=== PATIENT | female | born 1990 | race American Indian/Alaskan Native ===

== ENCOUNTER 2017-12-17 22:39 | Observation (INO) | payer OTHER ==
[2017-12-17 23:23] VITALS: BMI 22.3
[2017-12-17] MEDS ORDERED: Sodium Chloride 0.9% 1,000 ML IV STA (23:35)
[2017-12-18 00:32] LABS: ALB/GLOB RATIO 0.9 (1.1-1.8); ALBUMIN 4.3 g/dL (3.0-4.8); ALT/SGPT 22 U/L (7-56); AST/SGOT 54 U/L (14-36); BLOOD UREA NITROGEN 18 mg/dL (7-21); CALCIUM 9.3 mg/dL (8.4-10.5); GFR AFRICAN-AMERICAN > 60; GFR NON-AFRICAN AMERICAN 59; LIPASE 107 U/L (23-300)
[2017-12-18 00:41] LABS: BASO # 0.02 K/mm3 (0.0-2.0); BASO % 0.2 % (0.0-3.0); EOS # 0.1 (0.0-0.7); EOS % 1.5 % (1.5-5.0); GRAN # 5.97 (1.4-6.5); GRAN % 64.8 % (50.0-68.0); LYMPH # 2.4 (1.2-3.4); LYMPH % 25.8 % (22.0-35.0); MEAN CELL VOLUME 85.1 fl (80.0-105.0); MEAN CORPUSCULAR HEMOGLOBIN 29.3 pg (25.0-35.0); MEAN CORPUSCULAR HGB CONC 34.4 g/dl (31.0-37.0); MEAN PLATELET VOLUME 9.7 fl (7.0-11.0); MONO # 0.7 (0.1-0.6); MONO % 7.7 % (1.0-6.0); RBC 3.76 10^6/uL (3.5-6.1); RED CELL DISTRIBUTION WIDTH 13.9 % (11.5-14.5); WHITE BLOOD COUNT 9.2 10^3/ul (4.5-11.0)
[2017-12-18 01:02] LABS: URINE BILIRUBIN NEGATIVE (NEGATIVE); URINE BLOOD LARGE (NEGATIVE); URINE GLUCOSE (UA) NEGATIVE (NEGATIVE); URINE LEUKOCYTE ESTERASE NEGATIVE Leu/uL (NEGATIVE); URINE PROTEIN 100 mg/dL (<30 mg/dL); URINE UROBILINOGEN 0.2 E.U./dL (<1 E.U./dL)
[2017-12-18 01:03] LABS: URINE APPEARANCE SL CLOUDY (CLEAR); URINE COLOR YELLOW (YELLOW)
[2017-12-18 01:16] LABS: URINE WBC 0 - 2 /hpf (0-6)
--- NOTE | 2017-12-18 01:20 | ED PDOC ---
Arrival/HPI <Obinna Avina - Last Filed: 12/18/17 02:33> - General Historian: Patient - History of Present Illness Time/Duration: 1-3 hours Symptom Onset: Sudden Symptom Course: Unchanged Quality: Stabbing Severity Level: 10 <Paty Palomares - Last Filed: 12/19/17 16:19> - General Chief Complaint: Back Pain Time Seen by Provider: 12/17/17 23:34 - History of Present Illness Narrative History of Present Illness (Text): 12/18/17 02:17 27-year-old female presents today with a sudden onset of right-sided flank pain with associated nausea and vomiting. Patient complaining of sharp stabbing pain to the right flank radiating to the upper abdomen. Patient denies fevers or chills. No chest pain or shortness of breath. She denies dizziness or weakness. Patient states she took Tylenol for pain at home without improvement. She denies history of kidney stones in the past. She denies sick contacts. She denies diarrhea. She denies hematuria. She denies dysuria or urinary frequency. Patient states pain started 2 hours prior to arrival. (Paty Palomares) Past Medical History - Provider Review Nursing Documentation Reviewed: Yes - Travel History Have you recently traveled outside [place] w/in the past 3 mons?: No - Infectious Disease Hx of Infectious Diseases: None - Tetanus Immunization Tetanus Immunization: Up to Date - Reproductive Menopause: No - Past Medical History Past Medical History: No Previous - Psychiatric Hx Psychophysiologic Disorder: No Hx Anxiety: No Hx Bipolar Disorder: No Hx Depression: No Hx Emotional Abuse: No Hx Hallucinations: No Hx Panic Disorder: No Hx Post Traumatic Stress Disorder: No Hx Psychosis: No Hx Physical Abuse: No Hx Schizophrenia: No Hx Sexual Abuse: No Hx Substance Use: No - Surgical History Hx Section: Yes - Anesthesia Hx Anesthesia: Yes Hx Anesthesia Reactions: No Hx Malignant Hyperthermia: No - Suicidal Assessment Feels Threatened In Home Enviroment: No <Paty Palomares - Last Filed: 12/19/17 16:19> Family/Social History - Physician Review Nursing Documentation Reviewed: Yes Family/Social History: Unknown Family HX Smoking Status: Never Smoked Hx Alcohol Use: No Hx Substance Use: No Hx Substance Use Treatment: No <Paty Palomares - Last Filed: 12/19/17 16:19> Allergies/Home Meds <Obinna Avina - Last Filed: 12/18/17 02:33> <Paty Palomares Last Filed: 12/19/17 16:19> Allergies/Adverse Reactions: Allergies No Known Allergies Allergy (Verified 12/17/17 23:23) Review of Systems - Review of Systems Constitutional: absent: Fatigue, Fevers Respiratory: absent: SOB, Cough Cardiovascular: absent: Chest Pain, Palpitations Gastrointestinal: Abdominal Pain, Nausea, Vomiting. absent: Constipation, Diarrhea Genitourinary Female: absent: Dysuria, Frequency, Hematuria, Vaginal Bleeding, Vaginal Discharge Musculoskeletal: Back Pain. absent: Arthralgias, Neck Pain Skin: absent: Rash, Pruritis Neurological: absent: Headache, Dizziness Psychiatric: absent: Anxiety, Depression <Paty Palomares Last Filed: 12/19/17 16:19> Physical Exam Vital Signs Reviewed: Yes Temperature: Afebrile Blood Pressure: Normal Pulse: Regular Respiratory Rate: Normal Appearance: Positive for: Well-Appearing, Non-Toxic, Comfortable Pain Distress: None Mental Status: Positive for: Alert and Oriented X 3 - Systems Exam Head: Present: Atraumatic Mouth: Present: Moist Mucous Membranes Neck: Present: Normal Range of Motion Respiratory/Chest: Present: Clear to Auscultation, Good Air Exchange. No: Respiratory Distress, Accessory Muscle Use Cardiovascular: Present: Regular Rate and Rhythm, Normal S1, S2. No: Murmurs Abdomen: Present: Tenderness (minimal ruq tenderness). No: Distention, Peritoneal Signs, Rebound, Guarding Back: Present: Normal Inspection, Other (+ right flank tenderness). No: CVA Tenderness, Midline Tenderness Neurological: Present: GCS=15 Skin: Present: Warm, Dry, Normal Color. No: Rashes Psychiatric: Present: Alert, Oriented x 3 <Paty Palomares Last Filed: 12/19/17 16:19> Vital Signs Temp Pulse Resp BP Pulse Ox 12/18/17 02:11 82 16 106/52 L 97 12/18/17 01:27 79 18 117/54 L 99 12/18/17 00:18 79 14 112/62 99 12/17/17 23:19 97.8 F 81 18 109/63 98 Medical Decision Making - RAD Interpretation Machine Hostler: Radiologist <Obinna Avina Filed: 12/18/17 02:33> Reassessment Condition: Re-examined, Improving,but remains with symptoms <Paty Palomares - Last Filed: 12/19/17 16:19> ED Course and Treatment: 12/18/17 02:27 CT Abdomen and Pelvis shows: Lower thorax: Minimal bibasilar atelectasis or scar. ABDOMEN: Liver: Normal. No mass. Gallbladder and bile ducts: Normal. No calcified stones. No ductal dilation. Pancreas: Normal. No ductal dilation. Spleen: Normal. No splenomegaly. Adrenals: Normal. No mass. Kidneys and ureters: Right renal enlargement with perinephric induration and mild right hydronephrosis which extends to a proximal right ureteral calculus just below the UPJ measuring 4 x 3 x 7 mm. Stomach and bowel: Normal. No obstruction. No mucosal thickening. Appendix: A normal appendix is seen. PELVIS: Bladder: Unremarkable as visualized. Reproductive: There is packing in the vagina. ABDOMEN and PELVIS: Intraperitoneal space: Normal. No free air. No significant fluid collection. Bones/joints: Slight anterior wedge configuration of L1 which appears to be chronic. Soft tissues: Unremarkable. Vasculature: Normal. No abdominal aortic aneurysm. Lymph nodes: Normal. No enlarged lymph nodes. IMPRESSION: 1. Proximal right ureteral calculus just below the UPJ measuring 3 x 4 x 7 mm with secondary obstructive uropathy of the right upper tract. 2. Otherwise negative CT abdomen/pelvis. 12/18/17 02:29 Case discussed with healthcare or medical auto inspection specialist, who is aware and agrees with plan. 12/18/17 02:[address] Berumen, who is aware and agrees with plan. Accepts pt in to hospitalist service. Pt will go to [facility] observation for renal colic, nephrolithiasis, and intractable pain. (Obinna Avina) Patient is nontoxic well appearing with stable vital signs presenting with sudden onset of right sided flank pain radiating to the upper abdomen. CBC within normal limits CMP within normal limits Lipase within normal limits Urinalysis positive blood CAT scan pending Patient reassessment: After Toradol and Zofran patient states the nausea has subsided but the pain is still present. Patient rates the pain as a 6 out of 10. 2 mg of morphine added. 12/18/17 02:20 Case signed out to Dr. Avina pending CT result reevaluation and disposition (Paty Palomares) - Lab Interpretations Lab Results: 12/18/17 00:10 12/18/17 00:10 Lab Results 12/18/17 00:11: Urine Color Yellow, Urine Appearance Sl cloudy, Urine pH 6.0, Ur Specific [place] >= 1.030, Urine Protein 100 H, Urine Glucose (UA) Negative, Urine Ketones Trace H, Urine Blood Large H, Urine Nitrate Negative, Urine Bilirubin Negative, Urine Urobilinogen 0.2, Ur Leukocyte Esterase Negative, Urine RBC 5 - 10, Urine WBC 0 - 2, Ur Epithelial Cells 1 - 3 12/18/17 00:10: Magnesium 1.8 12/18/17 00:10: WBC 9.2, RBC 3.76, Hgb 11.0 L, Hct 32.0 L, MCV 85.1, MCH 29.3, MCHC 34.4, RDW 13.9, Plt Count 274, MPV 9.7, Gran % 64.8, Lymph % (Auto) 25.8, [place] % (Auto) 7.7 H, Eos % (Auto) 1.5, Baso % (Auto) 0.2, Gran # 5.97, Lymph # ( Auto) 2.4, [place] # (Auto) 0.7 H, Eos # (Auto) 0.1, Baso # (Auto) 0.02 12/18/17 00:10: Sodium 145, Potassium 3.5 L, Chloride 105, Carbon Dioxide 27, Anion Gap 16, BUN 18, Creatinine 1.1, Est GFR ( Amer) > 60, Est GFR (Non- Af Amer) 59, Random Glucose 105, Calcium 9.3, Total Bilirubin 0.4, AST 54 H, ALT 22, Alkaline Phosphatase 63, Total Protein 9.2 H, Albumin 4.3, Globulin 4.9 , Albumin/Globulin Ratio 0.9 L, Lipase 107 - RAD Interpretation Radiology Orders: 12/17/17 23:35 ABD & PELVIS W/O PO OR IV CONT [CT] Stat - Medication Orders Current Medication Orders: Enoxaparin Sodium (Lovenox) 40 mg SC DAILY LUCY PRN Reason: Protocol Last Admin: 12/19/17 09:04 Dose: 40 mg Subcutaneous Administrations Document 12/19/17 09:04 SIERRA (Rec: 12/19/17 09:04 SIERRA [id number]) Charges for Administration # of Subcutaneous Administrations 1 Sodium Chloride (Sodium Chloride 0.9%) 1,000 mls @ 150 mls/hr IV .Q6H40M LUCY Last Admin: 12/18/17 17:50 Dose: 150 mls/hr eMAR Start Stop Document 12/18/17 17:50 LMN (Rec: 12/18/17 17:50 LMN [id number]) Intravenous Solution Start Date 12/18/17 Start Time 11:30 Ondansetron HCl (Zofran Inj) 4 mg IVP Q4H PRN PRN Reason: Nausea/Vomiting Last Admin: 12/18/17 12:26 Dose: 4 mg IVP Administration Document 12/18/17 12:26 LMN (Rec: 12/18/17 12:26 LMN [id number]) Charges for Administration # of IVP Administrations 1 Oxycodone/Acetaminophen (Percocet 5/325 Mg Tab) 1 tab PO Q4H PRN PRN Reason: Pain, severe (8-10) Stop: 12/22/17 10:52 Pantoprazole Sodium (Protonix Inj) 40 mg IVP DAILY [facility] Last Admin: 12/19/17 09:03 Dose: 40 mg IVP Administration Document 12/19/17 09:03 SIERRA (Rec: 12/19/17 09:03 SIERRA [id number]) Charges for Administration # of IVP Administrations 1 Polyethylene Glycol (Miralax) 17 gm PO DAILY [facility] Tamsulosin HCl (Flomax) 0.4 mg PO DAILY [facility] Last Admin: 12/19/17 09:03 Dose: 0.4 mg Discontinued Medications Hydromorphone HCl (Dilaudid) 0.5 mg IVP STAT STA Stop: 12/18/17 03:57 Last Admin: 12/18/17 04:07 Dose: 0.5 mg MAR Pain Assessment Document 12/18/17 04:07 MAD (Rec: 12/18/17 04:07 MAD [id number]) Pain Reassessment Is this a pain reassessment? Yes Sleep Is patient sleeping during reassessment? No Presence of Pain Presence of Pain Yes Pain Scale Used Pain Scale Used Numeric Location Left, Right or Bilateral Right Pain Location Body Site Abdomen Back Description Description Radiating Intensity of Pain at present 8 Acceptable Level of Pain 3 Pain Behavior Facial Grimacing Alleviating Factors/Management Medication Techniques Alleviating Factors Medication IVP Administration Document 12/18/17 04:07 MAD (Rec: 12/18/17 04:07 MAD [id number]) Charges for Administration # of IVP Administrations 1 Re-Assess: DOUG Pain Assessment Document 12/18/17 05:07 MAD (Rec: 12/18/17 05:11 [facility] [id number]) Pain Reassessment Is this a pain reassessment? Yes Sleep Is patient sleeping during reassessment? Yes Sodium Chloride (Sodium Chloride 0.9%) 1,000 mls @ 999 mls/hr IV .Q1H1M STA Stop: 12/18/17 00:35 Last Admin: 12/17/17 23:58 Dose: 999 mls/hr eMAR Start Stop Document 12/17/17 23:58 TA (Rec: 12/17/17 23:58 TA RECOVERED-LAP) Intravenous Solution Start Date 12/17/17 Start Time 23:58 Potassium Chloride (Potassium Chloride 10 Meq/100 Ml) 10 meq in 100 mls @ 50 mls/hr IVPB Q2H LUCY Stop: 12/18/17 13:29 Last Admin: 12/18/17 12:18 Dose: 50 mls/hr eMAR Start Stop Document 12/18/17 12:18 LMN (Rec: 12/18/17 12:18 LMN [id number]) Intravenous Solution Start Date 12/18/17 Start Time 12:18 Magnesium 2 gm/50 ml NS (Magnesium Sulfate 2 Gm/50 Ml Ns) 2 gm in 50 mls @ 50 mls/hr IVPB ONCE ONE Stop: 12/19/17 10:07 Last Admin: 12/19/17 11:17 Dose: 50 mls/hr eMAR Start Stop Document 12/19/17 11:17 SIERRA (Rec: 12/19/17 11:17 [facility]ERRA [id number]) Intravenous Solution Start Date 12/19/17 Start Time 13:00 Potassium Chloride (Potassium Chloride 10 Meq/100 Ml) 10 meq in 100 mls @ 50 mls/hr IVPB Q2H LUCY Stop: 12/19/17 13:14 Last Admin: 12/19/17 11:16 Dose: 50 mls/hr eMAR Start Stop Document 12/19/17 11:16 SIERRA (Rec: 12/19/17 11:17 SIERRA [id number]) Intravenous Solution Start Date 12/19/17 Start Time 11:16 Ketorolac Tromethamine (Toradol) 30 mg IVP STAT STA Stop: 12/17/17 23:36 Last Admin: 12/17/17 23:58 Dose: 30 mg MAR Pain Assessment Document 12/17/17 23:58 TA (Rec: 12/17/17 23:59 TA RECOVERED-LAP) Pain Reassessment Is this a pain reassessment? Yes Sleep Is patient sleeping during reassessment? No Presence of Pain Presence of Pain Yes Pain Scale Used Pain Scale Used Numeric Location Left, Right or Bilateral Right Pain Location Body Site Abdomen Description Description Constant IVP Administration Document 12/17/17 23:58 TA (Rec: 12/17/17 23:59 TA RECOVERED-LAP) Charges for Administration # of IVP Administrations 1 Re-Assess: MAR Pain Assessment Document 12/18/17 00:58 RG (Rec: 12/18/17 01:48 RG [id number]) Pain Reassessment Is this a pain reassessment? Yes Sleep Is patient sleeping during reassessment? No Presence of Pain Presence of Pain Yes Pain Scale Used Pain Scale Used Numeric Location Left, Right or Bilateral Right Upper or Lower Lower Pain Location Body Site Back Description Description Sharp Intensity of Pain at present 8 Pain Behavior Moaning Guarding Morphine Sulfate (Morphine) 2 mg IVP STAT STA Stop: 12/18/17 01:45 Last Admin: 12/18/17 01:52 Dose: 2 mg MAR Pain Assessment Document 12/18/17 01:52 RG (Rec: 12/18/17 02:07 RG [id number]) Pain Reassessment Is this a pain reassessment? Yes Sleep Is patient sleeping during reassessment? No Presence of Pain Presence of Pain Yes Pain Scale Used Pain Scale Used Numeric Location Left, Right or Bilateral Right Upper or Lower Lower Pain Location Body Site Back Description Description Sharp Pain Behavior Moaning Guarding IVP Administration Document 12/18/17 01:52 RG (Rec: 12/18/17 02:07 RG [id number]) Charges for Administration # of IVP Administrations 1 Re-Assess: [facility] Pain Assessment Document 12/18/17 02:52 RG (Rec: 12/18/17 03:00 RG [id number]) Pain Reassessment Is this a pain reassessment? Yes Sleep Is patient sleeping during reassessment? No Presence of Pain Presence of Pain No Morphine Sulfate (Morphine) 2 mg IVP Q4H PRN PRN Reason: Pain, moderate (4-7) Last Admin: 12/19/17 09:04 Dose: 2 mg IVP Administration Document 12/19/17 09:04 SIERRA (Rec: 12/19/17 09:04 SIERRA [id number]) Charges for Administration # of IVP Administrations 1 Morphine Sulfate (Morphine) 2 mg IVP STAT STA Stop: 12/18/17 23:22 Last Admin: 12/18/17 23:36 Dose: 2 mg [facility] Pain Assessment Document 12/18/17 23:36 MB (Rec: 12/18/17 23:36 MB [id number]) Pain Reassessment Is this a pain reassessment? No Presence of Pain Presence of Pain Yes Pain Scale Used Pain Scale Used Numeric Location Left, Right or Bilateral Bilateral Upper or Lower Lower Pain Location Body Site Abdomen Description Description Intermittent Intensity of Pain at present 9 IVP Administration Document 12/18/17 23:36 MB (Rec: 12/18/17 23:36 MB [id number]) Charges for Administration # of IVP Administrations 1 Re-Assess: [facility] Pain Assessment Document 12/19/17 00:36 MB (Rec: 12/19/17 00:51 MB [id number]) Pain Reassessment Is this a pain reassessment? Yes Sleep Is patient sleeping during reassessment? Yes Ondansetron HCl (Zofran Inj) 4 mg IVP STAT STA Stop: 12/17/17 23:36 Last Admin: 12/17/17 23:59 Dose: 4 mg IVP Administration Document 12/17/17 23:59 TA (Rec: 12/17/17 23:59 TA RECOVERED-LAP) Charges for Administration # of IVP Administrations 1 Potassium Chloride (K-Dur 20 Meq Er Tab) 40 meq PO STAT STA Stop: 12/18/17 07:21 Last Admin: 12/18/17 08:15 Dose: 40 meq Comments: Pt vomited immediately after administration - PA / WELLNESS TRAINER / Resident Statement / has reviewed & agrees with the documentation as recorded. / has examined the patient and agrees with the treatment plan. <Obinna Avina - Last Filed: 12/18/17 02:33> Disposition/Present on Arrival <Obinna Avina - Last Filed: 12/18/17 02:33> - Present on Arrival Any Indicators Present on Arrival: No History of DVT/PE: No History of Uncontrolled Diabetes: No Urinary Catheter: No History of Decub. Ulcer: No History Surgical Site Infection Following: None - Disposition Have Diagnosis and Disposition been Completed?: Yes Disposition Time: 02:30 Patient Plan: Observation <Paty Palomares - Last Filed: 12/19/17 16:19> - Disposition Diagnosis: Nephrolithiasis Disposition: HOSPITALIZED Patient Problems: Current Active Problems Problem Status Onset Right nephrolithiasis Acute Condition: GOOD
[2017-12-18] MEDS: Sodium Chloride 0.9% 1,000 ML IV SCH ×2 (03:51→17:50)
--- NOTE | 2017-12-18 03:53 | CP.PCM.HP ---
<Osorio Newberry - Last Filed: 12/18/17 06:12> History of Present Illness - History of Present Illness History of Present Illness: Ms. Aponte is a 27 F with no significant Past Medical History who presented to the ED with intractable R sided flank pain that began last night. She was sitting watching a movie when a sharp stabbing pain began. She reported nauseau and vomitus x2 before her arrival and then two more times once in the unit. She states Ketorolac did not ease the pain, and morphine helped somewhat. The pain is located on the RLQ and radiates out to the R flank. Rates a 7/10 pain currently. She states that this is the last day of her menstrual period, and that her periods are regular. She denies a similar episode in the past. PMH: None Surgical Hx: x1, Orbital fracture surgery Family Medical Hx: Father - Lupus Social Hx: Denies tobacco. Occasional alcohol and marijuana use Allergies: NKDA Present on Admission - Present on Admission Any Indicators Present on Admission: No History of DVT/PE: No History of Uncontrolled Diabetes: No Urinary Catheter: No Decubitus Ulcer Present: No Review of Systems - Constitutional Constitutional: absent: Chills, Excessive Sweating, Fever - EENT Eyes: absent: Blurred Vision, Photophobia - Cardiovascular Cardiovascular: absent: Chest Pain, Diaphoresis, Dyspnea, Palpitations - Respiratory Respiratory: Pain with Coughing. absent: Cough, Dyspnea - Genitourinary Genitourinary: Change in Urinary Stream, Difficulty Urinating, Flank Pain, Urinary Hesitance, Voiding Freq/Small Amts. absent: Dysuria - Reproductive: Female Reproductive:Female: Currently Menstual, Normal Menses - Musculoskeletal Musculoskeletal: Back Pain Past Patient History - Infectious Disease Hx of Infectious Diseases: None - Tetanus Immunizations Tetanus Immunization: Up to Date - Past Medical History & Family History Past Medical History?: No - Past Social History Smoking Status: Never Smoked Alcohol: Occasional Drugs: Cannabis Home Situation {Lives}: With Family - PSYCHIATRIC Hx Psychophysiologic Disorder: No Hx Anxiety: No Hx Bipolar Disorder: No Hx Depression: No Hx Emotional Abuse: No Hx Hallucinations: No Hx Panic Symptoms: No Hx Post Traumatic Stress Disorder: No Hx Psychosis: No Hx Physical Abuse: No Hx Schizophrenia: No Hx Sexual Abuse: No Hx Substance Use: No - SURGICAL HISTORY Hx Section: Yes - ANESTHESIA Hx Anesthesia: Yes Hx Anesthesia Reactions: No Hx Malignant Hyperthermia: No Meds Allergies/Adverse Reactions: Allergies Allergy/AdvReac Type Severity Reaction Status Date / Time No Known Allergies Allergy Verified 12/17/17 23:23 Physical Exam - Constitutional Appears: In Acute Distress, Other (Discomfort) - Head Exam Head Exam: ATRAUMATIC, NORMOCEPHALIC - Respiratory Exam Respiratory Exam: Clear to Auscultation Bilateral. absent: Accessory Muscle Use , Chest Wall Tenderness, Decreased Breath Sounds, Wheezes, Respiratory Distress - Cardiovascular Exam Cardiovascular Exam: REGULAR RHYTHM, RRR, +S1, +S2. absent: Clicks - GI/Abdominal Exam GI & Abdominal Exam: Guarding, Normal Bowel Sounds, Tenderness - Back Exam Back exam: CVA tenderness (R). absent: CVA tenderness (L) Results - Vital Signs Recent Vital Signs: Last Vital Signs Temp 97.8 F 12/17/17 23:19 Pulse 82 12/18/17 02:11 Resp 16 12/18/17 02:11 BP 106/52 L 12/18/17 02:11 Pulse Ox 97 12/18/17 02:11 - Labs Result Diagrams: 12/18/17 00:10 12/18/17 00:10 Assessment & Plan - Assessment and Plan (Free Text) Assessment: Ms. Aponte is a 27 F with no significant PMHx who is admitted due to R nephrolithiasis. CT of the abd/pelvis confirmed a 4x3x7 mm stone just below the pelvic-ureteral junction. 1. R nephrolithiasis continue morphine 2mg q4 PRN Remain NPO in case of upcoming procedure Zofran 4 mg Q4 to control the nauseau Continue fluids NS 150 cc/hr Urology consult with Dr. Xiomara Rodas specimen to analyze stone UA shows no evidence of UTI (neg leuk esterase and nitrates) 2. Prophylaxis Protonix for GI Ppx SCD's for DVT Ppx Decision To Admit - Pt Status Changed To: Hospital Disposition Of: Inpatient Admission - Admit Certification Admit to Inpatient:: After my assessment, the patient will require hospitalization for at least two midnights. This is because of the severity of symptoms shown, intensity of services needed, and/or the medical risk in this patient being treated as an outpatient. - . Bed Request Type: Med/Surg <Mala Berumen - Last Filed: 12/18/17 06:24> Results - Vital Signs Recent Vital Signs: Last Vital Signs Temp 98.2 F 12/18/17 03:34 Pulse 78 12/18/17 03:34 Resp 18 12/18/17 03:34 BP 111/69 12/18/17 03:34 Pulse Ox 97 12/18/17 02:11 - Labs Result Diagrams: 12/18/17 00:10 12/18/17 00:10 Attending/Attestation - Attestation I have personally seen and examined this patient.: Yes I have fully participated in the care of the patient.: Yes I have reviewed all pertinent clinical information: Yes Notes (Text): 12/18/17 06:24 Patient was seen when she was in bed 569-02. Agree with history, physical examination, assessment and plan.
[2017-12-18] MEDS ORDERED: HYDROmorphone 0.5 mg/0.5 ml ISec IVP STA (03:56)
[2017-12-18] MEDS ORDERED: Potassium Chloride 20 mEq ER Tab PO STA (07:20)
[2017-12-18 07:38] VITALS: O2SAT 100
[2017-12-18] MEDS: Morphine 2 mg/2 mL syringe IVP PRN ×3 (08:14→21:21)
--- NOTE | 2017-12-18 10:30 | CT ---
PROCEDURE: CT Abdomen and Pelvis with Oral contrast. HISTORY: Right-sided flank pain COMPARISON: No prior study available comparison. TECHNIQUE: Contiguous axial images of the abdomen and pelvis performed without oral or intravenous contrast material. Additional 2D sagittal and coronal reformats generated. Radiation dose: Total exam DLP = 260.03 mGy-cm. This CT exam was performed using one or more of the following dose reduction techniques: Automated exposure control, adjustment of the mA and/or kV according to patient size, and/or use of iterative reconstruction technique. . FINDINGS: LOWER THORAX: Heart size normal. No significant pericardial effusion. There is a small hiatal hernia. Minor scarring changes left lingular region. LIVER: Unremarkable. No gross lesion or ductal dilatation. GALLBLADDER AND BILE DUCTS: Unremarkable. PANCREAS: Unremarkable. No mass. No ductal dilatation. SPLEEN: Unremarkable. No splenomegaly. ADRENALS: Unremarkable. KIDNEYS AND URETERS: There is a right-sided UPJ calculus that measures approximately 4.3 at mm in greatest dimension with mild right-sided hydronephrosis. Mild infiltration changes seen in the periureteric and. The pelvic fat. No additional renal or ureteral calculi are identified. BLADDER: Urinary bladder incompletely distended which presumably opacified areas. Possibility of a cystitis should be excluded with urinalysis correlation. REPRODUCTIVE: In situ tampon. APPENDIX: Appendix is unremarkable BOWEL: Unremarkable. No obstruction. No gross mural thickening. PERITONEUM: Unremarkable. No fluid collection. No free air. There is a small fat containing umbilical hernia. . LYMPH NODES: Unremarkable. No enlarged lymph nodes. VASCULATURE: Unremarkable. No aortic aneurysm. BONES: Minor chronic anterior wedging of the L1 segment with a small chronic appearing Schmorl's nodes anterior superior endplate of this segment OTHER FINDINGS: None. IMPRESSION: There is an approximately 4.3 mm calculus right UPJ with mild right-sided hydronephrosis. In situ tampon. Preliminary report provided by overnight radiology service.
[2017-12-18] MEDS: Enoxaparin 40 mg Syringe SC SCH (10:38)
--- NOTE | 2017-12-18 12:21 | PN ---
DATE: 12/18/2017 CHIEF COMPLAINT: Right flank pain. HISTORY OF PRESENT ILLNESS: This is a 27-year-old female who was admitted with renal colic. CT scan was reviewed. The patient appears to have a 4-mm upper right ureteral calculus. The patient has no fever or chills. She has a normal white count. She has no history of diabetes. Plan for now will be to discuss with the medical team. If the patient's pain can be controlled and she is tolerating a diet, the patient should be discharged home on oral analgesics and tamsulosin. The patient will need outpatient urologic followup. There is no indication for acute emergent surgical intervention at this time. Recommend a KUB with oblique prior to discharge to see if the stone is visible. Perhaps an outpatient shockwave lithotripsy would help. Stent placement will likely cause more discomfort and the patient should be given an opportunity to pass the stone spontaneously. Mateus Solano MD
[2017-12-18] MEDS ORDERED: Morphine 2 mg/ml ISec IVP STA (23:21)
[2017-12-19] MEDS: Morphine 2 mg/2 mL syringe IVP PRN ×2 (02:39→09:04)
[2017-12-19 07:11] LABS: HEMOGLOBIN 9.2 g/dL (12.0-16.0); MEAN CELL VOLUME 85.6 fl (80.0-105.0); MEAN CORPUSCULAR HEMOGLOBIN 28.2 pg (25.0-35.0); MEAN PLATELET VOLUME 9.4 fl (7.0-11.0); RBC 3.26 10^6/uL (3.5-6.1); RED CELL DISTRIBUTION WIDTH 14.2 % (11.5-14.5)
[2017-12-19 07:42] LABS: ALB/GLOB RATIO 0.8 (1.1-1.8); ALT/SGPT 13 U/L (7-56); AST/SGOT 24 U/L (14-36); BLOOD UREA NITROGEN 8 mg/dL (7-21); GFR AFRICAN-AMERICAN > 60; GFR NON-AFRICAN AMERICAN > 60
[2017-12-19] MEDS: Enoxaparin 40 mg Syringe SC SCH (09:04)
[2017-12-19] MEDS ORDERED: Magnesium 2 gm/50 ml NS 2 GM/50 ML BAG IVPB ONE (09:08)
[2017-12-19] MEDS ORDERED: Oxycodone/Acetaminophen 5/325 mg Tab PO PRN (10:51)
--- NOTE | 2017-12-19 12:24 | RAD ---
HISTORY: kidney stones COMPARISON: None FINDINGS: This examination is nondiagnostic for evaluation of renal calculi due to fecal material and bowel gas obscuring renal silhouette. BOWEL: There is moderate amount of stool in the colon. The bowel gas pattern is nonspecific. BONES: Normal. OTHER FINDINGS: None. IMPRESSION: Nondiagnostic examination as the renal silhouette is obscured by fecal material and bowel gas.
[2017-12-19] MEDS ORDERED: POLYETHYLENE GLYCOL 3350 17 GM/Dose PACKET PO SCH (14:15)
--- NOTE | 2017-12-19 14:40 | CP.PCM.PN ---
Subjective - Date & Time of Evaluation Date of Evaluation: 12/19/17 Time of Evaluation: 14:28 - Subjective Subjective: Medicine Progress Note Patient was seen at bedside today, reports no pain overnight. Patient states she was able to sleep until around 6AM when she woke up due to pain. Location of pain is RUQ radiating to right flank. Patient admits to nausea but denies episodes of vomiting. Pain medication PRN was administered. Patient denies blood in urine. PMH: None Surgical Hx: x1, Orbital fracture surgery Family Medical Hx: Father Lupus Social Hx: Denies tobacco. Occasional alcohol and marijuana use Allergies: NKDA PCP: Wili Crespo Objective - Vital Signs/Intake and Output Vital Signs (last 24 hours): Temp Pulse Resp BP Pulse Ox 99.4 F 95 H 97 H 110/71 100 12/19/17 06:00 12/19/17 06:00 12/19/17 06:00 12/19/17 06:00 12/18/17 22:16 - Medications Medications: Current Medications Enoxaparin Sodium (Lovenox) 40 mg SC DAILY [facility] PRN Reason: Protocol Last Admin: 12/19/17 09:04 Dose: 40 mg Sodium Chloride (Sodium Chloride 0.9%) 1,000 mls @ 150 mls/hr IV .Q6H40M [facility] Last Admin: 12/18/17 17:50 Dose: 150 mls/hr Ondansetron HCl (Zofran Inj) 4 mg IVP Q4H PRN PRN Reason: Nausea/Vomiting Last Admin: 12/18/17 12:26 Dose: 4 mg Oxycodone/Acetaminophen (Percocet 5/325 Mg Tab) 1 tab PO Q4H PRN PRN Reason: Pain, severe (8-10) Stop: 12/22/17 10:52 Pantoprazole Sodium (Protonix Inj) 40 mg IVP DAILY [facility] Last Admin: 12/19/17 09:03 Dose: 40 mg Polyethylene Glycol (Miralax) 17 gm PO DAILY [facility] Tamsulosin HCl (Flomax) 0.4 mg PO DAILY [facility] Last Admin: 12/19/17 09:03 Dose: 0.4 mg - Labs Labs: 12/19/17 06:30 12/19/17 06:30 - Constitutional Appears: No Acute Distress - Head Exam Head Exam: ATRAUMATIC, NORMAL INSPECTION, NORMOCEPHALIC - Eye Exam Eye Exam: Conjunctival injection, Normal appearance Pupil Exam: NORMAL ACCOMODATION - ENT Exam ENT Exam: Mucous Membranes Moist - Neck Exam Neck Exam: Full ROM, Normal Inspection - Respiratory Exam Respiratory Exam: Clear to Ausculation Bilateral, NORMAL BREATHING PATTERN. absent: Accessory Muscle Use, Chest Wall Tenderness, Decreased Breath Sounds, Rales, Rhonchi, Wheezes - Cardiovascular Exam Cardiovascular Exam: REGULAR RHYTHM, RRR. absent: Murmur - GI/Abdominal Exam GI & Abdominal Exam: Soft, Tenderness (positive CVA tenderness on right), Normal Bowel Sounds. absent: Distended, Guarding, Rigid, Diminished Bowel Sounds, Mass, Rebound - Extremities Exam Extremities Exam: Normal Inspection - Back Exam Back Exam: CVA tenderness (R), Full ROM, NORMAL INSPECTION - Neurological Exam Neurological Exam: Alert, Awake, CN II-XII Intact, Oriented x3 - Psychiatric Exam Psychiatric exam: Normal Affect, Normal Mood - Skin Skin Exam: Dry, Intact, Normal Color, Warm Assessment and Plan - Assessment and Plan (Free Text) Assessment: 1. R nephrolithiasis - CT Abd /pelvis performed and confirmed [id number] calculus right UPJ with mild right-sided hydronephrosis - Pain control: patient on - Tamsulosin 0.4mg PO QD - Transition from clear liquids into regular diet as tolerated - Zofran 4 mg Q4 to control the nausea PRN - Continue fluids NS 150 cc/hr - Per Urology consult with Dr. Solano, no emergent surgery is indicated - Outpatient follow-up with urology - Strain specimen to analyze stone - UA shows no evidence of UTI (neg leuk esterase and nitrates) 2. hypokalemia - K+ on admission 3.5 - Mag performed and was 1.8 - monitor daily labs - K+ IVPB given 3. Prophylaxis - Protonix for GI Ppx - SCD's for DVT Ppx Dispo: Discharge home on oral analgesics and tamsulosin, per Urology.
[2017-12-19 15:51] VITALS: BP 123/79; PULSE 77; RESP 18; TEMP 99.3
--- NOTE | 2017-12-19 16:18 | CP.PCM.DIS ---
Provider - Provider Date of Admission: 12/18/17 02:31 Attending physician: Telma Núñez MD Primary care physician: Wili Crespo MD Time Spent in preparation of Discharge (in minutes): 45 Hospital Course - Lab Results Lab Results: Most Recent Lab Values WBC 11.0 10^3/ul (4.5-11.0) 12/19/17 06:30 RBC 3.26 10^6/uL (3.5-6.1) L 12/19/17 06:30 Hgb 9.2 g/dL (12.0-16.0) L 12/19/17 06:30 Hct 27.9 % (36.0-48.0) L 12/19/17 06:30 MCV 85.6 fl (80.0-105.0) 12/19/17 06:30 MCH 28.2 pg (25.0-35.0) 12/19/17 06:30 MCHC 33.0 g/dl (31.0-37.0) 12/19/17 06:30 RDW 14.2 % (11.5-14.5) 12/19/17 06:30 Plt Count 250 10^3/uL (120.0-450.0) 12/19/17 06:30 MPV 9.4 fl (7.0-11.0) 12/19/17 06:30 Gran % 64.8 % (50.0-68.0) 12/18/17 00:10 Lymph % (Auto) 25.8 % (22.0-35.0) 12/18/17 00:10 [place] % (Auto) 7.7 % (1.0-6.0) H 12/18/17 00:10 Eos % (Auto) 1.5 % (1.5-5.0) 12/18/17 00:10 Baso % (Auto) 0.2 % (0.0-3.0) 12/18/17 00:10 Gran # 5.97 (1.4-6.5) 12/18/17 00:10 Lymph # (Auto) 2.4 (1.2-3.4) 12/18/17 00:10 [place] # (Auto) 0.7 (0.1-0.6) H 12/18/17 00:10 Eos # (Auto) 0.1 (0.0-0.7) 12/18/17 00:10 Baso # (Auto) 0.02 K/mm3 (0.0-2.0) 12/18/17 00:10 Sodium 141 mmol/L (132-148) 12/19/17 06:30 Potassium 3.5 mmol/L (3.6-5.0) L 12/19/17 06:30 Chloride 110 mmol/L (98-107) H 12/19/17 06:30 Carbon Dioxide 22 mmol/L (21-33) 12/19/17 06:30 Anion Gap 12 (10-20) 12/19/17 06:30 BUN 8 mg/dL (7-21) 12/19/17 06:30 Creatinine 0.9 mg/dl (0.7-1.2) 12/19/17 06:30 Est GFR ( Amer) > 60 12/19/17 06:30 Est GFR (Non-Af Amer) > 60 12/19/17 06:30 Random Glucose 106 mg/dL (70-110) 12/19/17 06:30 Calcium 8.0 mg/dL (8.4-10.5) L 12/19/17 06:30 Phosphorus 2.4 mg/dL (2.5-4.5) L 12/19/17 06:30 Magnesium 1.6 mg/dL (1.7-2.2) L 12/19/17 06:30 Total Bilirubin 0.5 mg/dL (0.2-1.3) 12/19/17 06:30 AST 24 U/L (14-36) 12/19/17 06:30 ALT 13 U/L (7-56) 12/19/17 06:30 Alkaline Phosphatase 47 U/L (38-126) 12/19/17 06:30 Total Protein 6.8 g/dL (5.8-8.3) 12/19/17 06:30 Albumin 3.0 g/dL (3.0-4.8) 12/19/17 06:30 Globulin 3.8 gm/dL 12/19/17 06:30 Albumin/Globulin Ratio 0.8 (1.1-1.8) L 12/19/17 06:30 Lipase 107 U/L (23-300) 12/18/17 00:10 Urine Color Yellow (YELLOW) 12/18/17 00:11 Urine Appearance Sl cloudy (CLEAR) 12/18/17 00:11 Urine pH 6.0 (4.7-8.0) 12/18/17 00:11 Ur Specific [place] >= 1.030 (1.005-1.035) 12/18/17 00:11 Urine Protein 100 mg/dL (<30 mg/dL) H 12/18/17 00:11 Urine Glucose (UA) Negative mg/dL (NEGATIVE) 12/18/17 00:11 Urine Ketones Trace mg/dL (NEGATIVE) H 12/18/17 00:11 Urine Blood Large (NEGATIVE) H 12/18/17 00:11 Urine Nitrate Negative (NEGATIVE) 12/18/17 00:11 Urine Bilirubin Negative (NEGATIVE) 12/18/17 00:11 Urine Urobilinogen 0.2 E.U./dL (<1 E.U./dL) 12/18/17 00:11 Ur Leukocyte Esterase Negative Adama/uL (NEGATIVE) 12/18/17 00:11 Urine RBC 5 - 10 /hpf (0-2) 12/18/17 00:11 Urine WBC 0 - 2 /hpf (0-6) 12/18/17 00:11 Ur Epithelial Cells 1 - 3 /hpf (0-5) 12/18/17 00:11 Discharge Exam - Head Exam Head Exam: ATRAUMATIC, NORMOCEPHALIC Discharge Plan - Discharge Medications Prescriptions: RX: oxyCODONE/Acetaminophen [Percocet 5/325 mg Tab] 1 tab PO Q6 PRN #12 tab PRN Reason: Pain, Severe (8-10) RX: Tamsulosin [Flomax] 0.4 mg PO DAILY #30 cap - Follow Up Plan Condition: GOOD Disposition: HOME/ ROUTINE Patient education suggested?: Yes Instructions: Kidney Stones (DC), Renal Colic (DC) Additional Instructions: Follow-up outpatient with urology in 3-5 days. Referral placed with Dr. Mateus Solano. Follow-up with PMD in 3-5 days. Return to ED if symptoms persist and/or worsen. Please take over the counter stool softener or laxative for constipation if needed. Referrals: Mateus Solano MD [Staff Provider] - Wili Crespo MD [Primary Care Provider] -
--- NOTE | 2017-12-19 16:23 | CP.PCM.DIS ---
<Rolando Boyd - Last Filed: 12/19/17 19:02> Provider - Provider Date of Admission: 12/18/17 02:31 Attending physician: Telma Núñez MD Primary care physician: Wili Crespo MD Consults: Urology: Dr. Mateus Solano M.D. Time Spent in preparation of Discharge (in minutes): 60 Diagnosis - Discharge Diagnosis (1) Right nephrolithiasis Status: Acute Priority: Medium Hospital Course - Lab Results Lab Results: Most Recent Lab Values WBC 11.0 10^3/ul (4.5-11.0) 12/19/17 06:30 RBC 3.26 10^6/uL (3.5-6.1) L 12/19/17 06:30 Hgb 9.2 g/dL (12.0-16.0) L 12/19/17 06:30 Hct 27.9 % (36.0-48.0) L 12/19/17 06:30 MCV 85.6 fl (80.0-105.0) 12/19/17 06:30 MCH 28.2 pg (25.0-35.0) 12/19/17 06:30 MCHC 33.0 g/dl (31.0-37.0) 12/19/17 06:30 RDW 14.2 % (11.5-14.5) 12/19/17 06:30 Plt Count 250 10^3/uL (120.0-450.0) 12/19/17 06:30 MPV 9.4 fl (7.0-11.0) 12/19/17 06:30 Gran % 64.8 % (50.0-68.0) 12/18/17 00:10 Lymph % (Auto) 25.8 % (22.0-35.0) 12/18/17 00:10 Bay % (Auto) 7.7 % (1.0-6.0) H 12/18/17 00:10 Eos % (Auto) 1.5 % (1.5-5.0) 12/18/17 00:10 Baso % (Auto) 0.2 % (0.0-3.0) 12/18/17 00:10 Gran # 5.97 (1.4-6.5) 12/18/17 00:10 Lymph # (Auto) 2.4 (1.2-3.4) 12/18/17 00:10 Bay # (Auto) 0.7 (0.1-0.6) H 12/18/17 00:10 Eos # (Auto) 0.1 (0.0-0.7) 12/18/17 00:10 Baso # (Auto) 0.02 K/mm3 (0.0-2.0) 12/18/17 00:10 Sodium 141 mmol/L (132-148) 12/19/17 06:30 Potassium 3.5 mmol/L (3.6-5.0) L 12/19/17 06:30 Chloride 110 mmol/L (98-107) H 12/19/17 06:30 Carbon Dioxide 22 mmol/L (21-33) 12/19/17 06:30 Anion Gap 12 (10-20) 12/19/17 06:30 BUN 8 mg/dL (7-21) 12/19/17 06:30 Creatinine 0.9 mg/dl (0.7-1.2) 12/19/17 06:30 Est GFR ( Amer) > 60 12/19/17 06:30 Est GFR (Non-Af Amer) > 60 12/19/17 06:30 Random Glucose 106 mg/dL (70-110) 12/19/17 06:30 Calcium 8.0 mg/dL (8.4-10.5) L 12/19/17 06:30 Phosphorus 2.4 mg/dL (2.5-4.5) L 12/19/17 06:30 Magnesium 1.6 mg/dL (1.7-2.2) L 12/19/17 06:30 Total Bilirubin 0.5 mg/dL (0.2-1.3) 12/19/17 06:30 AST 24 U/L (14-36) 12/19/17 06:30 ALT 13 U/L (7-56) 12/19/17 06:30 Alkaline Phosphatase 47 U/L (38-126) 12/19/17 06:30 Total Protein 6.8 g/dL (5.8-8.3) 12/19/17 06:30 Albumin 3.0 g/dL (3.0-4.8) 12/19/17 06:30 Globulin 3.8 gm/dL 12/19/17 06:30 Albumin/Globulin Ratio 0.8 (1.1-1.8) L 12/19/17 06:30 Lipase 107 U/L (23-300) 12/18/17 00:10 Urine Color Yellow (YELLOW) 12/18/17 00:11 Urine Appearance Sl cloudy (CLEAR) 12/18/17 00:11 Urine pH 6.0 (4.7-8.0) 12/18/17 00:11 Ur Specific [place] >= 1.030 (1.005-1.035) 12/18/17 00:11 Urine Protein 100 mg/dL (<30 mg/dL) H 12/18/17 00:11 Urine Glucose (UA) Negative mg/dL (NEGATIVE) 12/18/17 00:11 Urine Ketones Trace mg/dL (NEGATIVE) H 12/18/17 00:11 Urine Blood Large (NEGATIVE) H 12/18/17 00:11 Urine Nitrate Negative (NEGATIVE) 12/18/17 00:11 Urine Bilirubin Negative (NEGATIVE) 12/18/17 00:11 Urine Urobilinogen 0.2 E.U./dL (<1 E.U./dL) 12/18/17 00:11 Ur Leukocyte Esterase Negative Adama/uL (NEGATIVE) 12/18/17 00:11 Urine RBC 5 - 10 /hpf (0-2) 12/18/17 00:11 Urine WBC 0 - 2 /hpf (0-6) 12/18/17 00:11 Ur Epithelial Cells 1 - 3 /hpf (0-5) 12/18/17 00:11 - Hospital Course Hospital Course: Ms. Aponte is a 27 F with no significant Past Medical History who presented to the ED on 12/18/2017 with sudden onset intractable right upper quadrant pain radiating to right flank, nausea and vomiting. While in the ED, she was treated for pain with morphine IV 2mg Q4 PRN, and was subsequently admitted to [facility] for workup of right nephrolithiasis. CT of pelvis and abdomen was performed and confirmed [id number] stone just below the pelvic-ureteral junction. Urology was consulted, and per Dr. Xiomara M.D., emergent surgery was not indicated, and to follow-up with urology outpatient. Dr. Solano also reported that shockwave lithotripsy could be performed as out-patient, and that stent placement would likely cause more discomfort to the patient. The patient was treated with IVF, zofran, tamsulosin. Labs including CMP, CBC, magnesium, and phosphorus were were monitored throughout the patient's visit. Hypokalemia of 3.5 was corrected with K+ IVPB, and resolved on discharge. U/A was unremarkable for infection. On day of discharge, the patient was examined at bedside. Patient says PO analgesia managed her pain, and had no other complaints. Patient denied vomiting , hematuria, and/or dysuria. Physical exam revealed right-sided flank tenderness to palpation, positive right-sided CVA tenderness. Oral mucus membranes moist, and no suprapubic tenderness to palpation. The patient's vitals were hemodynamically stable. Patient was able to tolerate regular diet, and pain was controlled on percocet 3/325 on day of discharge. The patient was discharged on tamsulosin, and PO analgesic, instructed to continue to increase fluid intake, and encouraged to follow-up with urology as an out-patient within 3-5 days. Perscribed medications on day of discharge: oxyCODONE/Acetaminophen [Percocet 5/325 mg Tab] 1 tab PO Q6 PRN #12 tab PRN Reason: Pain, Severe (8-10) RX: Tamsulosin [Flomax] 0.4 mg PO DAILY #30 cap Consultations: Urology: Dr. Mateus Solano MD Primary Care Physician: Wili Crespo MD Discharge Exam - Head Exam Head Exam: ATRAUMATIC, NORMOCEPHALIC - Eye Exam Eye Exam: Normal appearance. absent: Conjunctival injection Pupil Exam: NORMAL ACCOMODATION - ENT Exam ENT Exam: Mucous Membranes Moist, Normal Exam - Neck Exam Neck exam: Full Rom - Respiratory Exam Respiratory Exam: NORMAL BREATHING PATTERN, UNREMARKABLE. absent: Accessory Muscle Use, Chest Wall Tenderness, Decreased Breath Sounds, Rales, Rhonchi, Wheezes - Cardiovascular Exam Cardiovascular Exam: REGULAR RHYTHM, RRR. absent: Diastolic murmur, Gallop - GI/Abdominal Exam GI & Abdominal Exam: Normal Bowel Sounds, Tenderness (Positive right CVA tenderness, right flank tenderness to palpation ). absent: Bruit, Distended, Firm, Guarding, Hyperactive Bowel Sounds, Hypoactive Bowel Sounds - Extremities Exam Extremities exam: full ROM, normal inspection - Back Exam Back exam: CVA tenderness (R) - Neurological Exam Neurological exam: Alert, CN II-XII Intact, Normal Gait, Oriented x3 - Psychiatric Exam Psychiatric exam: Normal Affect, Normal Mood - Skin Skin Exam: Dry, Intact, Normal Color, Warm Discharge Plan - Discharge Medications Prescriptions: oxyCODONE/Acetaminophen [Percocet 5/325 mg Tab] 1 tab PO Q6 PRN #12 tab PRN Reason: Pain, Severe (8-10) Tamsulosin [Flomax] 0.4 mg PO DAILY #30 cap - Follow Up Plan Condition: GOOD Disposition: HOME/ ROUTINE Patient education suggested?: Yes Instructions: Kidney Stones (DC), Renal Colic (DC) Additional Instructions: Follow-up outpatient with urology in 3-5 days. Referral placed with Dr. Mateus Solano. Follow-up with PMD in 3-5 days. Return to ED if symptoms persist and/or worsen. Please take over the counter stool softener or laxative for constipation if needed. Referrals: Mateus Solano MD [Staff Provider] - Wili Crespo MD [Primary Care Provider] - <NovakAle goldman R - Last Filed: 12/20/17 08:00> Provider - Provider Date of Admission: 12/18/17 02:31 Attending physician: Telma Núñez MD Primary care physician: Wili Crespo MD Hospital Course - Lab Results Lab Results: Most Recent Lab Values WBC 11.0 10^3/ul (4.5-11.0) 12/19/17 06:30 RBC 3.26 10^6/uL (3.5-6.1) L 12/19/17 06:30 Hgb 9.2 g/dL (12.0-16.0) L 12/19/17 06:30 Hct 27.9 % (36.0-48.0) L 12/19/17 06:30 MCV 85.6 fl (80.0-105.0) 12/19/17 06:30 MCH 28.2 pg (25.0-35.0) 12/19/17 06:30 MCHC 33.0 g/dl (31.0-37.0) 12/19/17 06:30 RDW 14.2 % (11.5-14.5) 12/19/17 06:30 Plt Count 250 10^3/uL (120.0-450.0) 12/19/17 06:30 MPV 9.4 fl (7.0-11.0) 12/19/17 06:30 Gran % 64.8 % (50.0-68.0) 12/18/17 00:10 Lymph % (Auto) 25.8 % (22.0-35.0) 12/18/17 00:10 Bay % (Auto) 7.7 % (1.0-6.0) H 12/18/17 00:10 Eos % (Auto) 1.5 % (1.5-5.0) 12/18/17 00:10 Baso % (Auto) 0.2 % (0.0-3.0) 12/18/17 00:10 Gran # 5.97 (1.4-6.5) 12/18/17 00:10 Lymph # (Auto) 2.4 (1.2-3.4) 12/18/17 00:10 Bay # (Auto) 0.7 (0.1-0.6) H 12/18/17 00:10 Eos # (Auto) 0.1 (0.0-0.7) 12/18/17 00:10 Baso # (Auto) 0.02 K/mm3 (0.0-2.0) 12/18/17 00:10 Sodium 141 mmol/L (132-148) 12/19/17 06:30 Potassium 3.5 mmol/L (3.6-5.0) L 12/19/17 06:30 Chloride 110 mmol/L (98-107) H 12/19/17 06:30 Carbon Dioxide 22 mmol/L (21-33) 12/19/17 06:30 Anion Gap 12 (10-20) 12/19/17 06:30 BUN 8 mg/dL (7-21) 12/19/17 06:30 Creatinine 0.9 mg/dl (0.7-1.2) 12/19/17 06:30 Est GFR ( Amer) > 60 12/19/17 06:30 Est GFR (Non-Af Amer) > 60 12/19/17 06:30 Random Glucose 106 mg/dL (70-110) 12/19/17 06:30 Calcium 8.0 mg/dL (8.4-10.5) L 12/19/17 06:30 Phosphorus 2.4 mg/dL (2.5-4.5) L 12/19/17 06:30 Magnesium 1.6 mg/dL (1.7-2.2) L 12/19/17 06:30 Total Bilirubin 0.5 mg/dL (0.2-1.3) 12/19/17 06:30 AST 24 U/L (14-36) 12/19/17 06:30 ALT 13 U/L (7-56) 12/19/17 06:30 Alkaline Phosphatase 47 U/L (38-126) 12/19/17 06:30 Total Protein 6.8 g/dL (5.8-8.3) 12/19/17 06:30 Albumin 3.0 g/dL (3.0-4.8) 12/19/17 06:30 Globulin 3.8 gm/dL 12/19/17 06:30 Albumin/Globulin Ratio 0.8 (1.1-1.8) L 12/19/17 06:30 Lipase 107 U/L (23-300) 12/18/17 00:10 Urine Color Yellow (YELLOW) 12/18/17 00:11 Urine Appearance Sl cloudy (CLEAR) 12/18/17 00:11 Urine pH 6.0 (4.7-8.0) 12/18/17 00:11 Ur Specific [place] >= 1.030 (1.005-1.035) 12/18/17 00:11 Urine Protein 100 mg/dL (<30 mg/dL) H 12/18/17 00:11 Urine Glucose (UA) Negative mg/dL (NEGATIVE) 12/18/17 00:11 Urine Ketones Trace mg/dL (NEGATIVE) H 12/18/17 00:11 Urine Blood Large (NEGATIVE) H 12/18/17 00:11 Urine Nitrate Negative (NEGATIVE) 12/18/17 00:11 Urine Bilirubin Negative (NEGATIVE) 12/18/17 00:11 Urine Urobilinogen 0.2 E.U./dL (<1 E.U./dL) 12/18/17 00:11 Ur Leukocyte Esterase Negative Adama/uL (NEGATIVE) 12/18/17 00:11 Urine RBC 5 - 10 /hpf (0-2) 12/18/17 00:11 Urine WBC 0 - 2 /hpf (0-6) 12/18/17 00:11 Ur Epithelial Cells 1 - 3 /hpf (0-5) 12/18/17 00:11 Attending/Attestation - Attestation I have personally seen and examined this patient.: Yes I have fully participated in the care of the patient.: Yes I have reviewed all pertinent clinical information, including history, physical exam and plan: Yes Notes (Text): 12/20/17 07:53 Patient seen and examined by me at 11:00 AM 12/19/17 with resident at bedside. Case including physical assessment and plan discussed with resident. Agree with above with following additions/changes. Patient states that she is feeling okay. She feels better than on admission. Pain is controlled. Patient is tolerating by mouth pain medications. Patient is also tolerating diet. Patient with intermittent nausea but no vomiting. Improved right CVA tenderness. No chest pain or shortness of breath. No abdominal pain. No fevers or chills. No headaches. No dysuria. Patient does complain of some constipation. Physical exam: Gen: Patient is awake and alert sitting up in bed in no acute distress HEENT: Normocephalic atraumatic, extraocular muscles intact, pupils equal reactive, oropharynx is pink and moist, no pharyngeal erythema or exudate appreciated, neck is supple. Cardiovascular: Normal rhythm, normal S1-S2, no murmurs rubs or gallops appreciated Pulmonary: Normal respiratory effort. No rhonchi, rales, or wheezing appreciated Gastrointestinal: Soft, nontender, nondistended, positive bowel sounds all 4 quadrants, no guarding Musculoskeletal: Moves all extremities, no calf tenderness, positive right CVA tenderness Central nervous system: AAO 3 Dermatologic: Skin warm and dry Assessment and plan: Patient is a 27-year-old female who presented with right flank pain. CT abdomen pelvis showed right nephrolithiasis. Patient was evaluated by urology. Per urology patient to follow up outpatient for further treatment. Patient was started on Flomax and placed on IV fluids as well as pain medications. Patient improved throughout her stay. Pain improved. Patient tolerating diet as well as oral pain medications. She wanted to go home. All symptoms improved upon discharge. Patient cleared for discharge by all consultants. Patient discharged with Flomax oral pain medications. Patient advised to follow-up with urology as well as primary care doctor within 3-5 days. All instructions discussed with patient in detail. Patient with understands and agrees to all instructions. Time spent to discharge. 35 minutes.
[2017-12-19] MEDS ORDERED: Potassium Chloride 20 mEq ER Tab PO ONE (16:28)
== END 2017-12-19 22:47 | disposition home or self-care (01) ==
LOC: ED 22:39 → ERH 12-18 02:31 → 5RNO 12-18 03:25
PROVIDERS: ADMIT Internal Medicine; ATTEND Internal Medicine
DX: N20.2 Calculus of kidney with calculus of ureter (principal); N13.9 Obstructive and reflux uropathy, unspecified; E87.6 Hypokalemia; F12.90 Cannabis use, unspecified, uncomplicated; K59.00 Constipation, unspecified
CPT/HCPCS: 36415; 74018; 74176; 80053; 81001; 83690; 83735; 84100; 85025; 85027; 96372; 96374; 96375; 96376; 99285; C9113; G0378; J1170; J1650; J1885; J2270; J2405; J3475; J3480; J7030